=== PATIENT | male | born 1975 | race American Indian/Alaskan Native ===

== ENCOUNTER 2017-06-09 14:12 | Emergency (ER) | payer OTHER ==
[2017-06-09 14:33] VITALS: BP 134/86
--- NOTE | 2017-06-09 15:35 | XRay Report ---
LEFT HIP RADIOGRAPHS INDICATION: Hip injury, pain. COMPARISON: None similar. FINDINGS: An AP pelvic radiograph with frog-leg projection of the left hip demonstrate intact femoral head contours bilaterally. Imaged bilateral SI and hip joints appear intact. Nonobstructive bowel gas pattern. CONCLUSION: No acute radiographic abnormality. Thank you for the opportunity to participate in this patient's care.
--- NOTE | 2017-06-09 15:39 | XRay Report ---
LEFT HAND RADIOGRAPHS INDICATION: Wrist injury, pain. COMPARISON: None similar. FINDINGS: Attempted AP, oblique and lateral left hand radiographs demonstrate acute displaced fractures at the bases of the proximal phalanges, displaced laterally by approximately 5 mm along the fourth and 7 mm along the fifth digits. Intact remainder bony articulation and appearance. Overlying soft tissue swelling suspected. Intact remainder bony articulation and appearance. CONCLUSION: Acute fracture angulations involving the bases/proximal aspects of left fourth and fifth proximal phalanges, as detailed above. Thank you for the opportunity to participate in this patient's care.
--- NOTE | 2017-06-09 15:41 | XRay Report ---
LEFT KNEE RADIOGRAPHS INDICATION: Left knee injury, pain. COMPARISON: None similar at this institution. FINDINGS: AP, lateral and oblique left knee radiographs demonstrate intact bony articulation. No suprapatellar effusion. Superior patellar enthesophyte. CONCLUSION: No acute left knee radiographic abnormality. Thank you for the opportunity to participate in this patient's care.
[2017-06-09] MEDS ORDERED: PERCOCET 5/325 PO ONE (22:07)
[2017-06-09] MEDS ORDERED: PERCOCET 5/325 ONE (22:08)
[2017-06-09] MEDS ORDERED: MARCAINE 0.5% 30 ML INFILTRATI ONE (23:15)
[2017-06-09] MEDS ORDERED: MARCAINE 0.5% INFILTRATI NR (23:45)
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
== END 2017-06-10 01:33 | disposition home or self-care (01) ==
LOC: ED 14:12
DX: S62.619A Displaced fracture of proximal phalanx of unspecified finger, initial encounter for closed fracture (principal); F17.200 Nicotine dependence, unspecified, uncomplicated; V23.4XXA Motorcycle driver injured in collision with car, pick-up truck or van in traffic accident, initial encounter; Y93.89 Activity, other specified; Y92.89 Other specified places as the place of occurrence of the external cause; Y99.8 Other external cause status
CPT/HCPCS: 99283

== ENCOUNTER 2017-06-15 07:22 | Day surgery (SDC) | payer OTHER ==
[~2017-06-15 07:22] MED LIST: ANCEF/STERILE WATER 2 GM/20 ML IV NR
[2017-06-15] MEDS ORDERED: DIPRIVAN 10 MG/ML IV ONE (08:49)
[2017-06-15] MEDS ORDERED: DILAUDID ONE (08:52)
[2017-06-15] MEDS ORDERED: XYLOCAINE MPF 2% ONE (08:52)
--- NOTE | 2017-06-15 08:59 | Anesthesia Day of Surgery ---
Anesthesia Day of Surgery - Day of Surgery Patient Examined: Yes Patient H&P Reviewed: Yes Patient is NPO: Yes
[2017-06-15] MEDS ORDERED: LACTATED RINGERS 1,000 ML IV SCH (09:00)
[2017-06-15] MEDS ORDERED: VERSED IV NR (09:00)
--- NOTE | 2017-06-15 09:00 | Anesthesia Consultation ---
Anesthesia Consult and Med Hx Date of service: 06/15/17 - Airway Anesthetic Teeth Evaluation: Good ROM Head & Neck: Adequate Mental/Hyoid Distance: Adequate Mallampati Class: Class I Intubation Access Assessment: Good - Pulmonary Exam CTA: Yes - Cardiac Exam Cardiac Exam: RRR - Pre-Operative Health Status ASA Pre-Surgery Classification: ASA2 Proposed Anesthetic Plan: General - Pulmonary Hx Smoking: Yes (1/2 PPD X 19 YRS) Hx Sleep Apnea: No (HÉCTOR PRE SCREEN LOW RISK) - Cardiovascular System Hx Hypertension: No - Other Systems Hx Cancer: No
[2017-06-15] MEDS ORDERED: ZOFRAN IV PRN (09:30)
[2017-06-15] MEDS ORDERED: DEMEROL IV PRN (09:30)
[2017-06-15] MEDS ORDERED: ZOFRAN ONE (10:42)
[2017-06-15] MEDS ORDERED: MARCAINE 0.25% INFILTRATI ONE ×2 (11:31→12:10)
[2017-06-15] MEDS ORDERED: SUBLIMAZE ONE (12:42)
[2017-06-15] MEDS: DILAUDID IV PRN ×2 (12:58→13:08)
--- NOTE | 2017-06-15 13:05 | Procedure Note ---
Date of procedure: 06/15/17 Pre-op diagnosis: displaced left fourth and fifth proximal phalanx fracture Post-op diagnosis: same Procedure: Open reduction internal fixation left fourth and fifth proximal phalanx Procedure The patient was brought to the OR and placed on the OR table in the supine position following induction and intubation by anesthesia the patient's left upper extremity was prepped and draped in the usual sterile manner a timeout procedure was done to identify the patient and the correct operative site. The arm was exsanguinated followed by inflation of the pneumatic tourniquet 250 mmHg. The fifth finger was approached first using a type incision centered over the metacarpophalangeal joint incision was carried using a 15 blade the extensor tendon was seen and identified using a longitudinal incision and so retraction the fracture was identified and the patient was noted to have a transverse fracture approximately 8 or 9 mm from the joint line pain reduction clamps and K wire for temporary fixation the fracture was manipulated into a reduced position Type mini fragment plate was applied to the proximal phalanx and secured with screws of various lengths. Following this a second bayonet type incision was made over the fourth metacarpophalangeal joint again the incision was carried down through skin and subcutaneous the extensor tendon was identified and was incised longitudinally and retractors and bone-holding forceps or clamps were used to stabilize the fracture in a reduced position again and a T-type locked mini plate was applied to the proximal phalanx with screws of various length x-ray was obtained in both the AP and lateral views showing good position of the fracture and reduction as well as placement of our hardware followingthis copiously irrigated the extensor tendons were repaired using 5-0 nylon in a interrupted mattress fashion the skin was closed with 3-0 nylon routine postoperative dressings were applied as well as a well-padded clamdigger type splint to the fourth and fifth fingers care was taken to maintain the metacarpophalangeal joint in 90 of flexion following this the patient was extubated and taken to postop recovery in a stable condition Anesthesia: JOCELYNNA Surgeon: MARILOU JOE Estimated blood loss: minimal Pathology: none Condition: stable Disposition: PACU
[2017-06-15] MEDS ORDERED: ROXICODONE PO PRN (13:30)
[2017-06-15] MEDS ORDERED: PERCOCET 5/325 ONE (13:33)
[2017-06-15 13:41] VITALS: BP 145/84
--- NOTE | 2017-06-15 15:47 | Post Anesthesia Evaluation ---
- Post Anesthesia Evaluation Patient Participated: Yes Airway Patent: Yes Stable Respiratory Function: Yes Nausea/Vomiting: No Temp > 96.8F: Yes Pain Manageable: Yes Adequeate Hydration: Yes Anesthesia Complications: No
--- NOTE | 2017-06-16 07:39 | XRay Report ---
INTRAOPERATIVE LEFT FINGER RADIOGRAPHS INDICATION: Displaced left fourth and fifth fingers fracture repair. COMPARISON: 06/09/2017. FINDINGS: Intraoperative fluoroscopic guidance provided. AP and lateral, 2 images, demonstrate plate and screw repair of fourth and fifth proximal phalanx fractures with anatomic alignment. CONCLUSION: Intraoperative fluoroscopic guidance provided for open reduction and internal fixation of left fourth and fifth digit fractures, as described. Thank you for the opportunity to participate in this patient's care.
== END 2017-06-15 07:23 | disposition home or self-care (01) ==
LOC: OR 07:22
PROVIDERS: ATTEND Orthopaedic Surgery
DX: S62.615A Displaced fracture of proximal phalanx of left ring finger, initial encounter for closed fracture (principal); S62.617A Displaced fracture of proximal phalanx of left little finger, initial encounter for closed fracture; J45.909 Unspecified asthma, uncomplicated; F17.210 Nicotine dependence, cigarettes, uncomplicated; V29.40XA Motorcycle driver injured in collision with unspecified motor vehicles in traffic accident, initial encounter; Y93.89 Activity, other specified; Y92.89 Other specified places as the place of occurrence of the external cause; Y99.8 Other external cause status
CPT/HCPCS: 26735; 73140; C1713; J0690; J1170; J2250; J2405; J2704; J3010; J7120